=== PATIENT | female | born 1940 | race Caucasian/White ===

== ENCOUNTER → 2019-07-30 | Outpatient (CLI) | payer MEDICARE ==
--- NOTE | 2019-07-30 10:49 | CT ---
EXAMINATION TYPE: CT abdomen pelvis wo con DATE OF EXAM: 07/30/2019 HISTORY: Hydronephrosis and abdominal pain not further specified per order. On-and-off bilateral pain for 3 months with history of breast cancer per patient. CT DLP: 311.8 mGycm. Automated Exposure Control for Dose Reduction was Utilized. TECHNIQUE: CT scan of the abdomen and pelvis is performed with oral but without IV contrast. COMPARISON: NONE FINDINGS: Within the limitations of a non-contrast study, the following observations are made. LUNG BASES: No significant abnormality is appreciated. LIVER/GB: Occasional subcentimeter hypodense lesions scattered throughout the liver are too small to further characterize but presumed benign. Cholecystectomy clips are present. PANCREAS: No significant abnormality is seen. SPLEEN: No significant abnormality is seen. ADRENALS: No significant abnormality is seen. KIDNEYS: No definitive bilateral renal calculi. Bladder is poorly distended with mild to moderate abn ormal wall thickening with more suspicious focal thickening along the anterior wall. There is mild-to -moderate left greater than right hydronephrosis and mild hydroureter without obstructing calculi sukumar ntified. BOWEL: Humeral contrast reaches level of the terminal ileum. No suspicious small or large bowel dilat ation. GENITAL ORGANS: Uterus is surgically absent. Scattered pelvic phleboliths. LYMPH NODES: No greater than 1cm abdominal or pelvic lymph nodes are appreciated. OSSEOUS STRUCTURES: Moderate narrowing and spurring of both hip joints. Facet arthropathy lower lumba r levels. OTHER: No significant additional abnormality is seen. IMPRESSION: There is suspected mild to borderline moderate left greater than right hydronephrosis wit hout obstructing calculus clearly seen. There is suspicious mild wall thickening in the bladder with more eccentric moderate anterior thickening suspected. Bladder suboptimally evaluated due to poor dis tention. Cannot exclude underlying bladder mass or neoplasm. Advised urology referral and Consider cy stoscopy evaluation based on clinical and urine lab correlation.
== END | disposition home or self-care (01) ==
LOC: RADCTMAIN 09:03
PROVIDERS: ATTEND Family Medicine
DX: N32.89 Other specified disorders of bladder (principal); R10.9 Unspecified abdominal pain
CPT/HCPCS: 74176; Q9967

== ENCOUNTER → 2019-10-09 | Outpatient (CLI) | payer MEDICARE ==
--- NOTE | 2019-10-09 14:09 | CT ---
EXAMINATION TYPE: CT urogram wo/w con DATE OF EXAM: 10/09/2019 COMPARISON: 07/30/2019 HISTORY: 79-year-old female hydronephrosis, abnormal prior TECHNIQUE: Contiguous axial scanning of the abdomen and pelvis performed without and with IV Contrast , patient injected with 100 mL of Isovue 300. Delayed images through the kidneys and bladder were obt ained. Coronal/sagittal reconstructions performed. 3-D reconstructions generated on a dedicated [employer] workstation. CT DLP: 934.2 mGycm Automated exposure control for dose reduction was used. FINDINGS: Heart normal size without pericardial effusion. Some mild bronchiolectasis medial right base and some subtle interstitial changes suggesting some interstitial scarring. Tiny hiatal hernia. A few hypodensities within the liver measuring up to 1.3 cm, unchanged from 07/30/2019 suggesting jose maria gn cysts. Portal venous system is patent. No biliary ductal dilatation. Gallbladder surgically absent. Adrenal glands, spleen, and pancreas appear within normal limits. Bilateral parapelvic cysts are present measuring up to 1.4 cm on the right with an extrarenal pelvis also noted and measuring 2.1 cm on the left. Symmetric uptake and excretion of contrast from both kidneys. No nephrolithiasis or hydronephrosis. No suspicious renal lesion. A short segment of the proximal thi rd left ureter remains nonopacified but shows no abnormal wall thickening. Remainder of the bilateral ureters opacify satisfactory. No dilated small bowel, free fluid, or free air. No mesenteric or retroperitoneal lymphadenopathy. Lo w hanging small bowel loops in the pelvis. [id number]-[id number] stool burden. No pericolonic inflammatory change. No mesenteric or retroperitoneal lymphadenopathy. Pelvis circumferential bladder wall thickening. No suspicious filling defects seen along the posterio r two thirds of the bladder. Pelvic phleboliths. Bones: Facet arthropathy with grade 1 anterolisthesis at L3-L4 and L4-L5. Moderate degenerative disc disease lower thoracic spine. IMPRESSION: 1. LEFT GREATER THAN RIGHT SIDED PARAPELVIC CYSTS WITHIN THE KIDNEYS MEASURING UP TO 2.1 CM ACCOUNTIN G FOR THE QUESTIONED APPEARANCE OF HYDRONEPHROSIS ON THE 07/30/2019 EXAM. THERE IS NO HYDRONEPHROSIS, SUSPICIOUS RENAL LESION, OR NEPHROLITHIASIS. THE PROXIMAL THIRD LEFT URETER IS NONOPACIFIED AND ASSES SMENT HERE IS LIMITED. THE REMAINING RENAL COLLECTING SYSTEMS AND URETERS SHOW NO SUSPICIOUS FILLING DEFECT. 2. POSTERIOR TWO THIRDS OF THE BLADDER OPACIFIES WITH CONTRAST ON THE DELAYED SCAN. THERE IS MILD CIR CUMFERENTIAL WALL THICKENING THAT COULD REPRESENT CHRONIC BLADDER WALL HYPERTROPHY OR CYSTITIS. NO GREENE SPICIOUS MASSLIKE THICKENING ALONG THE PREVIOUSLY QUESTIONED ANTEROLATERAL ASPECT. A PRECAUTIONARY MEASURE, URINE CYTOLOGY CAN BE PERFORMED. 3. TINY HIATAL HERNIA.
== END | disposition home or self-care (01) ==
LOC: RADCTMAIN 11:25
PROVIDERS: ATTEND Urology
DX: N28.1 Cyst of kidney, acquired (principal); N32.89 Other specified disorders of bladder; K44.9 Diaphragmatic hernia without obstruction or gangrene; C50.919 Malignant neoplasm of unspecified site of unspecified female breast
CPT/HCPCS: 82565; 84520; 74178; 36415; 74400; Q9967

== ENCOUNTER → 2021-01-05 | Outpatient (CLI) | payer MEDICARE ==
--- NOTE | 2021-01-05 10:53 | MM ---
Reason for exam: additional evaluation requested from prior study. Last mammogram was performed 17 years and 7 months ago. History: Patient is postmenopausal and has history of breast cancer at age 63. Malignant ultrasound-guided core biopsy of the right breast, June 26, 2003. Malignant ultrasound-guided core biopsy of the right breast, June 26, 2003. Lumpectomy of the right breast, 2003. Chemotherapy, 2003. Radiation therapy of the right breast, 2003. 2 core biopsies of the right breast. Physical Findings: Nurse did not find any significant physical abnormalities on exam. MG 3D Diag Mammo W/Cad TUAN Bilateral CC, MLO, and XCCL view(s) were taken. Prior study comparison: December 21, 2017, mammogram, performed at [facility]. December 12, 2016, mammogram, performed at [facility]. The breast tissue is heterogeneously dense. This may lower the sensitivity of mammography. Post surgical changes right upper outer quadrant. No significant new findings when compared with previous films. These results were verbally communicated with the patient and result sheet given to the patient on 01/05/21. ASSESSMENT: Benign, BI-RAD 2 RECOMMENDATION: Routine screening mammogram of both breasts in 1 year.
== END | disposition home or self-care (01) ==
LOC: RADMAMWWP 08:51
PROVIDERS: ATTEND Family Medicine
DX: R92.2 Inconclusive mammogram (principal); Z78.0 Asymptomatic menopausal state; Z85.3 Personal history of malignant neoplasm of breast
CPT/HCPCS: 77066; G0279; 77062

== ENCOUNTER → 2022-08-19 | Outpatient (CLI) | payer MEDICARE ==
--- NOTE | 2022-08-22 08:27 | MM ---
Reason for Exam: Screening (asymptomatic). Last mammogram was performed 1 year(s) and 8 month(s) ago. Patient History: Menarche at age 16. First Full-Term at age 25. Hysterectomy at age 38. Perimenopausal. Breast cancer, right, age 63. Previous chest radiation therapy at age 63. Previous chemotherapy at age 63. 2003, Lumpectomy on the Right side. Core Biopsy on the Right side. Core Biopsy on the Right side. 06/26/2003, Malignant Ultrasound-Guided Core Biopsy on the right side. 06/26/2003, Malignant Ultrasound-Guided Core Biopsy on the right side. 2003, Chemotherapy. 2003, Radiation Therapy on the right side. Prior Study Comparison: 12/12/2016 [facility] 01[facility]21 Bilateral Diagnostic Mammogram, [facility]. Tissue Density: The breast tissue is heterogeneously dense. This may lower the sensitivity of mammography. Findings: Analyzed By CAD. There is no suspicious group of microcalcifications or new suspicious mass in either breast. Postoperative distortion right breast is stable. Benign calcifications seen bilaterally. Overall Assessment: Benign, BI-RAD 2 Management: Screening Mammogram of both breasts in 1 year. A clinical breast exam by your physician is recommended on an annual basis and results should be correlated with mammographic findings. Electronically signed and approved by: Bernard Moise M.D. Radiologis
== END | disposition home or self-care (01) ==
LOC: RADMAMWWP 16:16
PROVIDERS: ATTEND Family Medicine
DX: Z12.31 Encounter for screening mammogram for malignant neoplasm of breast (principal); Z80.3 Family history of malignant neoplasm of breast; Z92.3 Personal history of irradiation
CPT/HCPCS: 77063; 77067

== ENCOUNTER → 2023-06-13 | Outpatient (CLI) | payer MEDICARE ==
--- NOTE | 2023-06-13 09:48 | US ---
EXAMINATION TYPE: US renal artery duplex complet DATE OF EXAM: 06/13/2023 COMPARISON: NONE CLINICAL INDICATION: Female, 83 years old with history of I70.1 ATHEROSCLEROSIS OF RENAL ARTERY; MEASUREMENTS: RENAL SIZE: Right Kidney: 9.0 x 4.3 x 4.2cm Left Kidney: 9.4 x 4.7 x 4.5cm Right Kidney: no hydronephrosis or lesions seen Left Kidney: 1.8cm hypoechoic area mid pole Abd Aorta: no AAA visualized RESISTANCE INDEX Right: 0.79 Left: 0.80 RA/AO RATIO (< 3.5 ) Right: 1.6 Left: 1.6 RENAL ARTERY VELOCITY ( < 180 cm/s) Right: 150.8 Left: 149.0 IMPRESSION: No sonographic evidence to suggest renal artery stenosis.
== END | disposition home or self-care (01) ==
LOC: RADUSWWP 08:24
PROVIDERS: ATTEND Family Medicine
DX: I70.1 Atherosclerosis of renal artery (principal)
CPT/HCPCS: 93975

== ENCOUNTER → 2023-12-13 | Outpatient (CLI) | payer MEDICARE ==
--- NOTE | 2024-01-04 08:21 | MM ---
Reason for Exam: Screening (asymptomatic). Last mammogram was performed 1 year(s) and 4 month(s) ago. Patient History: Menarche at age 16. First Full-Term at age 25. Hysterectomy at age 38. Perimenopausal. Breast cancer, right, age 63. Previous chest radiation therapy at age 63. Previous chemotherapy at age 63. 2003, Lumpectomy on the Right side. Core Biopsy on the Right side. Core Biopsy on the Right side. 06/26/2003, Malignant Ultrasound-Guided Core Biopsy on the right side. 06/26/2003, Malignant Ultrasound-Guided Core Biopsy on the right side. 2003, Chemotherapy. 2003, Radiation Therapy on the right side. Prior Study Comparison: 12/21/2017 Screening Mammogram, [facility] . 01/05/2021 Bilateral Diagnostic Mammogram, [facility]. 08/19/2022 Bilateral MG 3D screening mammo w/cad, [facility]. Tissue Density: The breasts are heterogeneously dense, which may obscure small masses. Findings: Analyzed By CAD. Right breast: There is no suspicious group of microcalcifications or new suspicious mass. Benign-appearing calcifications right breast. Left breast: There is no suspicious group of microcalcifications or new suspicious mass. Benign-appearing calcifications left breast. Overall Assessment: Benign, BI-RAD 2 Management: Screening Mammogram of both breasts in [address] [facility] will attempt to contact patient to return for supplemental views and ultrasound if indicated. Patient should continue monthly self-breast exams. A clinical breast exam by your physician is recommended on an annual basis. This exam should not preclude additional follow-up of suspicious palpable abnormalities. Note on Nanette scores and lifetime risk: 1. A Nanette score greater than 3% is considered moderate risk. If this is the case, consider specialist referral to assess eligibility for a risk reducing agent. 2. If overall lifetime risk for the development of breast cancer is 20% or higher, the patient may qualify for future screening with alternating mammogram and breast MRI. Electronically signed and approved by: Anselmo Cedeno DO
== END | disposition home or self-care (01) ==
LOC: RADMAMWWP 12:00
PROVIDERS: ATTEND Family Medicine
DX: Z12.31 Encounter for screening mammogram for malignant neoplasm of breast
CPT/HCPCS: 77063; 77067